=== PATIENT | female | born 1975 | race Caucasian/White ===

== ENCOUNTER 2020-07-16 12:00 | Emergency (ER) | payer SELFPAY ==
--- NOTE | 2020-07-16 12:10 | PSYCHOLOGICAL NOTE ---
Psych Note - Psych Note Date seen by psych provider: 07/16/20 Time seen by psych provider: 11:49 Psych Note: Patient was evaluated by [employer] Crisis Intervention Counselor via IPad with [facility]. [facility] was also involved. She presented manic, had grandiose delusions, disorganized speech, made vague aggressive threats towards the customer strategy manager at the local [employer] she was at wanting to know where the [employer] lived, was paranoid with thinking people are watching her, presented guarded as was not willing to give information like diagnoses/previous medication prescribed to her in the past and commented "I am only allowed to give that information to the doctors dad said I an allowed to," and she was non reality based today. Patient has a history of Bipolar Disorder, multiple psychiatric inpatient hospitalizations with most recent being within the past 6 months, has previous suicide attempts, is noncompliant with medication, and has been off her medications for 4-6 months. Patient uses cannabis daily. Patient is a danger to self and others in current state of mind where she has poor insight, judgment and impulse control. She is being put on a 24 Hour Petition for Evaluation.
[2020-07-16] MEDS ORDERED: OLANZAPINE INJ/PF 10 MG SDV IM ONE (12:25)
[2020-07-16] MEDS ORDERED: BENZTROPINE MESYLATE INJ 2 MG/2 ML AMPULE IM ONE (12:27)
[2020-07-16] MEDS ORDERED: CHLORPROMAZINE HCL INJ 25 MG/1 ML AMPULE IV ONE (12:27)
--- NOTE | 2020-07-16 12:35 | ER Document Report ---
ED Psych Disorder / Suicide - General Stated Complaint: PSYCH EVAL Time Seen by Provider: 07/16/20 12:25 Notes: 44 of female was brought in via EMS under IVC. The patient was seen with community paramedics over an iPad by psychiatry. The patient is been very manic having rambling speech grandiose thoughts. [place] [employer] [place] [employer] live. Patient is very agitated. Not very cooperative. Denies any suicidal homicidal thoughts but appears to be responding to internal stimuli but denies visual auditory hallucinations. Patient was seen by psychiatry and evaluated in the field initially thought to be a danger to herself or others. Patient was brought in for evaluation she denies any chest pain shortness of breath or abdominal pain. Denies headache or blurred vision. Difficult to get answers from the patient due to her rambling mental status. Past Medical History - Social History Smoking Status: Current Every Day Smoker Family History: None Review of Systems - Review of Systems Constitutional: denies: Chills, Fever Cardiovascular: denies: Chest pain, Dyspnea Respiratory: denies: Cough, Hemoptysis Gastrointestinal: No symptoms reported Genitourinary: No symptoms reported Neurological/Psychological: Anxiety, Hallucinations, Other - Hallucinations responding to internal stimuli -: Yes All other systems reviewed and negative Physical Exam - Vital signs Vitals: Temp Pulse Resp BP Pulse Ox 98.9 F 111 H 20 153/98 H 99 07/16/20 12:27 07/16/20 12:27 07/16/20 12:27 07/16/20 12:27 07/16/20 12:27 - Notes Notes: GENERAL_APPEARANCE: well_nourished, alert, cooperative, easily agitated VITALS: reviewed, see vital signs table. HEAD: no_swelling\tenderness on the head. EYES: PERRL, EOMI, conjunctiva_clear. NOSE: no_nasal_discharge. MOUTH: (-)decreased moisture. THROAT: no_tonsilar_inflammation, no_airway_obstruction. no_lymphadenopathy NECK: supple, no_neck_tenderness, (-)thyromegaly. BACK: no_back_tenderness. CHEST_WALL: no_chest_tenderness. LUNGS: no_wheezing, no_rales, no_rhonchi, (-)accessory muscle use, good air exchange bilateral. HEART: normal_rate, normal_rhythm, normal_S1, normal_S2, (-)S3, (-)S4, no_murmur, no_rub. ABDOMEN: normal_BS, soft, no_abd_tenderness, (-)guarding, (-)rebound, no_organomegaly, no_abd_masses. EXTREMITIES: good pulses in all_extremities, no_swelling\tenderness in the extremities, no_edema. SKIN: warm, dry, good_color, no_rash. MENTAL_STATUS: speech_clear, oriented_X_3, manic_affect, responds_appropriately to questions. PSYCH: Denies suicidal homicidal thoughts., Patient is responding to internal stimuli appears to be hallucinating but will not tell us what. Rambling on and on hard to redirect. No insight to her situation no remote memory and judgment. Course - Re-evaluation Re-evalutation: 07/16/20 12:34 The patient was seen by community paramedics and had a psychiatric consult via iPad in the community. Psychiatry recommended she come in patient does appear to be very manic very tangential. She is labile. We will give her some medicine to sedate her for agitation. Hopefully we can get her stabilized to be seen by psychiatry here in the emergency department. Draw labs and medical evaluation. Denies any illicit drug use 07/16/20 15:23 Blood work shows a mildly elevated white count but this is likely an acute phase reactant due to the patient's manic state. We are still waiting on the urine for infection but however the patient is now asleep due to the sedation. 07/16/20 18:03 Still waiting on a urinalysis. Self everything looks good but I cannot medically clear until urinalysis is back. 07/16/20 18:03 Nursing stated the patient has required restraints and additional medications. - Vital Signs Vital signs: Temp Pulse Resp BP Pulse Ox 98.9 F 111 H 20 153/98 H 99 07/16/20 12:27 07/16/20 12:27 07/16/20 12:27 07/16/20 12:27 07/16/20 12:27 - Laboratory Result Diagrams: 07/16/20 12:45 07/16/20 12:45 Laboratory results interpreted by me: 07/16/20 07/16/20 12:45 12:45 WBC 16.6 H Absolute Neuts (auto) 12.1 H Glucose 135 H Salicylates < 1.0 L Acetaminophen < 10 L Discharge - Discharge Clinical Impression: Acute psychosis Condition: Good Disposition: OTHER
[2020-07-16 13:12] LABS: ABSOLUTE BASOPHILS # (AUTO) 0.1 10^3/uL (0.0-0.2); ABSOLUTE EOSINOPHILS # (AUTO) 0.1 10^3/uL (0.0-0.6); ABSOLUTE LYMPHOCYTES (AUTO) 3.3 10^3/uL (0.5-4.7); ABSOLUTE NEUT (AUTO) 12.1 10^3/uL (1.7-8.2); BASOPHILS % (AUTO) 0.6 % (0-2); EOSINOPHILS % (AUTO) 0.6 % (0-6); HEMATOCRIT 38.6 % (36.0-47.0); HEMOGLOBIN 13.3 g/dL (12.0-15.5); LYMPHOCYTES % (AUTO) 19.7 % (13-45); MEAN CORPUSCULAR HEMOGLOBIN 31.2 pg (27.0-33.4); MEAN CORPUSCULAR HGB CONC 34.5 g/dL (32.0-36.0); MEAN CORPUSCULAR VOLUME 90 fl (80-97); MONOCYTES % (AUTO) 6.3 % (3-13); PLATELET COUNT 326 10^3/uL (150-450); RED BLOOD COUNT 4.27 10^6/uL (3.72-5.28); RED CELL DISTRIBUTION WIDTH 13.6 % (11.5-14.0); SEGMENTED NEUTROPHILS % (AUTO) 72.8 % (42-78); TOTAL CELLS COUNTED % (AUTO) 100 %; WHITE BLOOD COUNT 16.6 10^3/uL (4.0-10.5)
[2020-07-16 13:31] LABS: ALBUMIN 4.4 g/dL (3.5-5.0); ALKALINE PHOSPHATASE 100 U/L (38-126); ANION GAP 11 (5-19); ASPARTATE AMINO TRANSFERASE 26 U/L (14-36); BILIRUBIN,DIRECT 0.2 mg/dL (0.0-0.4); BILIRUBIN,TOTAL 0.5 mg/dL (0.2-1.3); BLOOD UREA NITROGEN 15 mg/dL (7-20); CALCIUM 9.7 mg/dL (8.4-10.2); CARBON DIOXIDE 23 mmol/L (22-30); CHLORIDE 107 mmol/L (98-107); GLUCOSE 135 mg/dL (75-110); POTASSIUM 3.7 mmol/L (3.6-5.0); TOTAL PROTEIN 7.4 g/dL (6.3-8.2)
[2020-07-16 13:36] LABS: ACETAMINOPHEN < 10 ug/mL (10-30); ALCOHOL < 10 mg/dL (NONE DETECTED); SALICYLATE < 1.0 mg/dL (2.0-20.0)
--- NOTE | 2020-07-16 15:52 | EKG REPORT ---
SEVERITY:- OTHERWISE NORMAL ECG - SINUS TACHYCARDIA : Confirmed by: Elsy Vera MD 16-Jul-2020 15:52:15
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
[2020-07-16] MEDS: BENZTROPINE MESYLATE INJ 2 MG/2 ML AMPULE IM SCH (18:00)
[2020-07-16] MEDS: OLANZAPINE INJ/PF 10 MG SDV IM SCH (18:00)
[2020-07-16] MEDS: CHLORPROMAZINE HCL INJ 25 MG/1 ML AMPULE IM PRN (18:00)
[2020-07-16 21:28] LABS: APPEARANCE,URINE SLIGHTLY-CLOUDY; BILIRUBIN,URINE NEGATIVE (NEGATIVE); COLOR,URINE AMBER; GLUCOSE, URINE NEGATIVE (NEGATIVE); KETONES,URINE NEGATIVE (NEGATIVE); LEUKOCYTE ESTERASE,URINE NEGATIVE (NEGATIVE); NITRITE,URINE NEGATIVE (NEGATIVE); PROTEIN,URINE 30 mg/dL (NEGATIVE); URINE SPECIFIC GRAVITY 1.028
[2020-07-16 21:39] LABS: URINE AMPHETAMINES SCREEN NEGATIVE; URINE BARBITURATES SCREEN NEGATIVE; URINE BENZODIAZEPINES SCREEN NEGATIVE; URINE COCAINE SCREEN NEGATIVE; URINE METHADONE SCREEN NEGATIVE; URINE PHENCYCLIDINE SCREEN NEGATIVE
[2020-07-16 21:47] LABS: URINE MARIJUANA (THC) SCREEN UNCONFIRMED POSITIVE
[2020-07-17] MEDS: CHLORPROMAZINE HCL INJ 25 MG/1 ML AMPULE IM PRN ×3 (00:57→18:30)
[2020-07-17] MEDS ORDERED: DIPHENHYDRAMINE HCL 50 MG/ML VIAL IM ONE (03:13)
[2020-07-17] MEDS ORDERED: LORAZEPAM INJ 2 MG/1 ML VIAL IM ONE (03:13)
[2020-07-17] MEDS: OLANZAPINE INJ/PF 10 MG SDV IM SCH (11:25)
[2020-07-17] MEDS: BENZTROPINE MESYLATE INJ 2 MG/2 ML AMPULE IM SCH ×2 (11:25→18:30)
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
--- NOTE | 2020-07-17 13:51 | ER Document Report ---
Doctor's Note Notes: 07/17/20 09:30 I spoke with the patient, she denies any symptoms or complaints at this time. She is asking to go outside and smoke a cigarette but I discussed with her that this is not possible. She continues to be acutely psychotic. 07/17/20 13:47 Patient had an elevated WBC of 16.6 and was tachycardic yesterday with a HR of 120. Repeat CBC ordered as well as a CXR to rule out pneumonia as UA done yesterday was negative. 07/17/20 16:15 Chest XR is negative. 07/17/20 17:03 Medication recommendations updated per Dr. Raines as patient continues to be manic. Discontinued zyprexa, increased dose of thorazine to 75mg IM Q6H and added risperidone 2mg PO QAM and prolixin 2.5mg PO QHS. 07/17/20 18:06 WBC trending down to 14.4. Patient still tachycardic at 112 but it is improving from yesterday. O2 sat of 100% on RA. WBC and HR elevated as patient continues to be manic. However, cannot rule out PE, will repeat vitals when the patient is calm. 07/17/20 20:00 Patient handoff given to Yasmany Santoyo PA-C. He was made aware of need for repeat HR and vitals.
[2020-07-17 17:21] LABS: ABSOLUTE BASOPHILS # (AUTO) 0.1 10^3/uL (0.0-0.2); ABSOLUTE EOSINOPHILS # (AUTO) 0.2 10^3/uL (0.0-0.6); ABSOLUTE LYMPHOCYTES (AUTO) 3.6 10^3/uL (0.5-4.7); ABSOLUTE NEUT (AUTO) 9.3 10^3/uL (1.7-8.2); BASOPHILS % (AUTO) 0.7 % (0-2); EOSINOPHILS % (AUTO) 1.5 % (0-6); HEMATOCRIT 35.8 % (36.0-47.0); HEMOGLOBIN 12.2 g/dL (12.0-15.5); LYMPHOCYTES % (AUTO) 25.2 % (13-45); MEAN CORPUSCULAR HEMOGLOBIN 30.8 pg (27.0-33.4); MEAN CORPUSCULAR HGB CONC 34.1 g/dL (32.0-36.0); MEAN CORPUSCULAR VOLUME 90 fl (80-97); MONOCYTES % (AUTO) 6.9 % (3-13); PLATELET COUNT 293 10^3/uL (150-450); RED BLOOD COUNT 3.97 10^6/uL (3.72-5.28); RED CELL DISTRIBUTION WIDTH 13.2 % (11.5-14.0); SEGMENTED NEUTROPHILS % (AUTO) 65.7 % (42-78); TOTAL CELLS COUNTED % (AUTO) 100 %; WHITE BLOOD COUNT 14.1 10^3/uL (4.0-10.5)
--- NOTE | 2020-07-17 17:50 | RADIOLOGY REPORT (SQ) ---
EXAM DESCRIPTION: CHEST SINGLE VIEW IMAGES COMPLETED DATE/TIME: 07/17/2020 2:49 pm REASON FOR STUDY: elevated WBC COMPARISON: None. EXAM PARAMETERS: NUMBER OF VIEWS: One view. TECHNIQUE: Single frontal radiographic view of the chest acquired. RADIATION DOSE: NA LIMITATIONS: None. FINDINGS: LUNGS AND PLEURA: No opacities, masses or pneumothorax. No pleural effusion. MEDIASTINUM AND HILAR STRUCTURES: No masses. Contour normal. HEART AND VASCULAR STRUCTURES: Heart normal in size. Normal vasculature. BONES: No acute findings. HARDWARE: None in the chest. OTHER: No other significant finding. IMPRESSION: NO ACUTE RADIOGRAPHIC FINDING IN THE CHEST. TECHNICAL DOCUMENTATION: JOB ID: [id number] 2010 [employer]- All Rights Reserved Reading location - IP/workstation name: [email or web address]
[2020-07-17] MEDS: FLUPHENAZINE HCL 2.5 MG TABLET PO SCH (23:49)
[2020-07-18] MEDS: BENZTROPINE MESYLATE INJ 2 MG/2 ML AMPULE IM SCH ×2 (09:09→18:54)
[2020-07-18] MEDS: RISPERIDONE 1 MG TAB.RAPDIS PO SCH (09:09)
[2020-07-18] MEDS: CHLORPROMAZINE HCL INJ 25 MG/1 ML AMPULE IM PRN ×2 (09:10→18:55)
--- NOTE | 2020-07-18 17:43 | ER Document Report ---
Doctor's Note Notes: 07/18/20 08:00 Patient hand off given by Yasmayn Santoyo PA-C. He states patients heart rate improved and patient did not complain of any shortness of breath and chest pain. Low suspicion of PE and do not feel further workup is needed as she is no longer tachycardic and she denies SOB and chest pain. 07/18/20 17:35 Nursing reporting that patient continues to be manic and is difficult to settle and has tried eloping. She was given a dose of PRN thorazine this morning around 9AM. Patient re-evaluated and she denies any c omplaints or pain. Vitals remain normal and stable. She states she is "doing good". Patient is still awaiting placement. 07/18/20 20:20 Patient hand off given to overnight APC.
[2020-07-18] MEDS: FLUPHENAZINE HCL 2.5 MG TABLET PO SCH (22:00)
[2020-07-19] MEDS ORDERED: LORAZEPAM INJ 2 MG/1 ML VIAL IM ONE (02:41)
[2020-07-19] MEDS: CHLORPROMAZINE HCL INJ 25 MG/1 ML AMPULE IM PRN (03:03)
[2020-07-19] MEDS: RISPERIDONE 1 MG TAB.RAPDIS PO SCH (08:14)
[2020-07-19] MEDS: BENZTROPINE MESYLATE INJ 2 MG/2 ML AMPULE IM SCH (10:35)
--- NOTE | 2020-07-19 14:44 | PSYCHOLOGICAL NOTE ---
Psych Note - Psych Note Date seen by psych provider: 07/18/20 Time seen by psych provider: 12:00 Psych Note: Reason for Consult:Manic Patient was evaluated by [facility] Crisis Intervention Counselor via IPad with [facility]. A Mobile Crisis was also involved. She presented manic, had grandiose delusions, disorganized speech, made vague aggressive threats Check on conducted with patient: Patient continues to demonstrate difficulties with tracey and paranoia. She attempted to [place]OPE but was re-directable. Patient can be heard talking to herself. Addendum to include Medication recommendations per [facility] contracted psychiatrist are as follows: Risperidone 2mg in the morning Prolixin 2.5mg at night Thorazine to 75mg every six hours as needed Cogentin 1mg twice a day Impression/plan: Patient is recommended for continued IVC. Patient continues to demonstrate tracey with pressured speech, delusion thought processes and needing frequent re-direction. Patient will be re-evaluated. Dr. Raines was consulted on the care and management of this patient; attending physician is in agreement with recommendations and disposition.
--- NOTE | 2020-07-19 15:17 | PSYCHOLOGICAL NOTE ---
Psych Note - Psych Note Date seen by psych provider: 07/19/20 Time seen by psych provider: 10:30 Psych Note: Reason for Consult:Manic Patient was evaluated by [employer] Crisis Intervention Counselor via IPad with [facility]. A Mobile Crisis was also involved. She presented manic, had grandiose delusions, disorganized speech, made vague aggressive threats Check on conducted with patient: Patient continues to demonstrate behaviours of responding to internal stimuli. Patient appears to be having a second conversation with her hallucination(s) when talking with clinician. Patient believes she is in [place] and stated she is at a libertarian and the clinician "I can tell you have been to the libertarian too with your eyes." Patient continues to undress and needs to be redirected to her room and re-dress. Updated Medication recommendations per [facility] contracted psychiatrist are as follows: Discontinue Risperidone, Thorazine and Prolixin Start [place] 300mg every morning and 600mg every evening Start Haldol IM 5mg every 6 hours as needed Cogentin 1mg daily Impression/plan: Patient is recommended for continued IVC. Patient continues to demonstrate tracey with pressured speech, delusion thought processes and needing frequent re-direction. Medications have been updated. Patient will be re-e valuated. Dr. Raines was consulted on the care and management of this patient; attending physician is in agreement with recommendations and disposition.
[2020-07-19] MEDS ORDERED: HALOPERIDOL LACTATE INJ 5 MG/1 ML VIAL IM PRN (17:05)
--- NOTE | 2020-07-19 17:07 | ER Document Report ---
Doctor's Note Notes: 07/19/20 17:05 PHYSICAL EXAMINATION: GENERAL: Appears well, healthy, well-nourished, no acute distress. LUNGS: Equal breath sounds bilaterally and clear to auscultation. No wheezes rales or rhonchi. CARDIOVASCULAR: S1-S2, regular rate, regular rhythm. Radial pulses 2+, normal. ABDOMEN: Normoactive bowel sounds. Soft, nontender, no guarding, no rebound tenderness, and no masses palpated. PSYCH: Rambling, pressured speech. Patient denies any suicidal ideation has some random homicidal ideation, but is unclear as to what she wants to do or to who. Patient continues to ramble in her speech. Mental health has given these recommendations: Discontinue Risperidone, Thorazine and Prolixin Start [place] 300mg every morning and 600mg every evening Start Haldol IM 5mg every 6 hours as needed Cogentin 1mg daily Orders entered.
[2020-07-19] MEDS ORDERED: HALOPERIDOL LACTATE INJ 5 MG/1 ML VIAL IM SCH (17:15)
[2020-07-19] MEDS: LITHIUM CARBONATE 300 MG CAPSULE PO SCH (21:41)
[2020-07-20] MEDS: LITHIUM CARBONATE 300 MG CAPSULE PO SCH ×2 (07:47→21:34)
[2020-07-20] MEDS: BENZTROPINE MESYLATE INJ 2 MG/2 ML AMPULE IM SCH (09:51)
--- NOTE | 2020-07-20 12:50 | PSYCHOLOGICAL NOTE ---
Psych Note - Psych Note Date seen by psych provider: 07/20/20 Time seen by psych provider: 11:07 Psych Note: [id number] Re evaluation Reason for Consult: manic episode, grandiose delusions, disorganized speech, threatening others, and paranoia Patient was evaluated by [place] [employer] Crisis Intervention Counselor via [employer] with [facility]. A Mobile Crisis was also involved. She presented manic, had grandiose delusions, disorganized speech, made vague aggressive threats Patient continues to demonstrate paranoia. She states she has been followed for 8 years. When asked about her interaction with her family since being here, she states she does not feel comfortable discussing that information with clinician. Patient was talking about brain signals being sent to each other. 07/19/2020 Medication recommendations per [facility] contracted psychiatrist are as follows: (to be continued) Discontinue Risperidone, Thorazine and Prolixin Start [place] 300mg every morning and 600mg every evening Start Haldol IM 5mg every 6 hours as needed Cogentin 1mg daily Impression/plan: Patient is recommended for continued IVC. Patient continues to demonstrate tracey with pressured speech, delusion thought processes and needing frequent re-direction. Medications have been updated on 07/19/2020 and are to be continues. Patient will be re-evaluated. Dr. Raines was consulted on the care and management of this patient; attending physician is in agreement with recommendations and disposition.
[2020-07-20] MEDS ORDERED: IBUPROFEN 600 MG TABLET PO ONE (16:18)
--- NOTE | 2020-07-20 16:19 | ER Document Report ---
Doctor's Note Notes: 07/20/20 16:18 Patient's vital signs and previous labs, diagnostic images reviewed. Reviewed mental health notes, nurse's notes and previous providers notes. VSS. Pt is in no distress at this time. Denies any SI or HI. Reports a history of left knee pain, denies any trauma. Patient states that she would like some ibuprofen for her pain, she does not want with an x-ray machine she is interested right now. General: A&Ox3. Answers questions appropriately. Heart: RRR Lungs: CTAB Psych: Flat affect A/P: Continue monitoring and rec's per MH. Normal diet continue to monitor
[2020-07-21] MEDS ORDERED: LEVOTHYROXINE SODIUM 0.025 MG TABLET PO ONE (08:14)
[2020-07-21] MEDS: BENZTROPINE MESYLATE INJ 2 MG/2 ML AMPULE IM SCH (09:26)
[2020-07-21] MEDS: LITHIUM CARBONATE 300 MG CAPSULE PO SCH (09:26)
[2020-07-21 10:50] LABS: FREE T3 3.71 pg/mL (2.77-5.27); FREE T4 (FREE THYROXINE) 1.38 ng/dL (0.78-2.19)
[2020-07-21 11:03] LABS: THYROID STIMULATING HORMONE 4.8 uIU/mL (0.47-4.68)
--- NOTE | 2020-07-21 11:34 | ER Document Report ---
Doctor's Note Notes: 07/21/20 11:05 PHYSICAL EXAMINATION: GENERAL: Disheveled appearance, patient walking around in the room occasionally exposing herself HEAD: Atraumatic, normocephalic. EYES: sclera anicteric, conjunctiva are normal. ENT: nares patent. Moist mucous membranes. NECK: Normal range of motion, supple without lymphadenopathy LUNGS: CTAB and equal. No wheezes rales or rhonchi. HEART: Regular rate and rhythm without murmurs EXTREMITIES: Normal range of motion, no pitting edema. No cyanosis. BACK: No CVA tenderness NEUROLOGICAL: Cranial nerves grossly intact. Normal speech. Normal gait. PSYCH: Patient with visual hallucinations, patient with psychomotor agitation SKIN: Warm, Dry, normal turgor, no rashes or lesions noted Patient ambulatory at bedside stating that she sees a puppy on a train underneath the bed. Patient able to be redirected. Patient appears medically clear for transfer at this time pending behavioral health team disposition. 07/21/20 14:56 Patient has been accepted to [facility] and is awaiting negative rapid Covid test prior to transfer. 07/21/20 18:10 report and handoff given to Lauren De Leon NP.
--- NOTE | 2020-07-21 13:40 | PSYCHOLOGICAL NOTE ---
Psych Note - Psych Note Date seen by psych provider: 07/21/20 Time seen by psych provider: 10:49 Psych Note: Re evaluation [id number] Reason for Consult: manic episode, grandiose delusions, disorganized speech, threatening others, and paranoia Patient was evaluated by [place] [employer] Crisis Intervention Counselor via [employer] with [facility]. A Mobile Crisis was also involved. She presented manic, had grandiose delusions, disorganized speech, made vague aggressive threats Patient continues to demonstrate paranoia. When clinician entered the room, patient was standing in the corner of the room with her bed unmade. When asked what patient was doing she stated she was standing in the corner and she was talking to Tracy, a little girl who he watched grow up (currently 18 years old). Nobody was in the room with the patient. Patient states she had chaos in her dreams and flew off the bed last night. She continues to ramble and not make a lot of sense when she talks, talking about working on compiling evidence and people transferring appearances around her. She is still manic and paranoid. 07/19/2020 Medication recommendations per [facility] contracted psychiatrist are as follows: (to be continued) Discontinue Risperidone, Thorazine and Prolixin Start [place] 300mg every morning and 600mg every evening Start Haldol IM 5mg every 6 hours as needed Cogentin 1mg daily Impression/plan: Patient is recommended for continued IVC. Patient was accepted to [facility] for inpatient hospitalization and medication management. Patient's niece has been involved in plan of care and calls multiple times a week to check in and ask for updates. Her niece was informed of placement acceptance and she was given the point of contact for [facility] where patient will be admitted. Niece plans to continue to be part of plan of care and patient is to go back home with niece when stable. A rapid COVID test has been ordered and the cement loader's office will be contacted today. Patient continues to demonstrate tracey with pressured speech, delusion thought processes and needing frequent re-direction. Medications have been updated on 07/19/2020 and are to be continued. Dr. Raines was consulted on the care and management of this p atient; attending physician is in agreement with recommendations and disposition.
[2020-07-21 20:45] VITALS: BP 146/80
[2020-07-22] MEDS ORDERED: LEVOTHYROXINE SODIUM 0.025 MG TABLET PO SCH (10:00)
== END 2020-07-21 18:20 ==
LOC: ER 12:00
DX: F23 Brief psychotic disorder (principal); D72.829 Elevated white blood cell count, unspecified; F41.9 Anxiety disorder, unspecified; R45.1 Restlessness and agitation; R00.0 Tachycardia, unspecified; M25.562 Pain in left knee; F17.210 Nicotine dependence, cigarettes, uncomplicated; Z20.828 Contact with and (suspected) exposure to other viral communicable diseases; Z78.1 Physical restraint status; Z75.1 Person awaiting admission to adequate facility elsewhere
CPT/HCPCS: 93005; 99285; 96372 ×6; 36415; 84439; 80307 ×4; 80178; 84443; 84703; 85025; 0241U ×4; 80053; 81001; 84481; 93010; J0515 ×6; J3230 ×4; J1200; J1630; J3490 ×7; J2060 ×2; C9803